=== PATIENT | male | born 1990 | race Caucasian/White ===

== ENCOUNTER 2018-04-05 18:43 | Emergency (ER) | payer OTHER ==
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
[2018-04-05 19:59] VITALS: BP 116/80
== END 2018-04-05 19:58 | disposition home or self-care (01) ==
PROC: 2W3RX1Z Immobilization of Left Lower Leg using Splint (ICD-10-PCS; principal; 2018-04-05)
DX: S92.102A Unspecified fracture of left talus, initial encounter for closed fracture (principal); W19.XXXA Unspecified fall, initial encounter; Y92.838 Other recreation area as the place of occurrence of the external cause; Y93.89 Activity, other specified; Y99.9 Unspecified external cause status

== ENCOUNTER → 2018-04-29 | Outpatient (CLI) | payer OTHER | LOC: BMCIMAGING 08:25 | PROVIDERS: ATTEND Podiatrist Foot & Ankle Surgery | DX: S92.102D Unspecified fracture of left talus, subsequent encounter for fracture with routine healing (principal) ==

== ENCOUNTER → 2018-05-20 | Outpatient (CLI) | payer OTHER | LOC: BMCIMAGING 08:02 | PROVIDERS: ATTEND Podiatrist Foot & Ankle Surgery | DX: S92.102D Unspecified fracture of left talus, subsequent encounter for fracture with routine healing (principal) ==